=== PATIENT | female | born 1950 | race Caucasian/White ===

== ENCOUNTER 2021-10-14 05:20 | Day surgery (SDC) | payer MEDICARE ==
[2021-10-12 08:39] LABS: BASOPHILS % (AUTO) 0.7 % (0.0-2.0); EOSINOPHILS # (AUTO) 0.1 K/uL (0.0-0.4); EOSINOPHILS % (AUTO) 2.1 % (0.0-4.0); HEMATOCRIT 37.6 % (36-48); HEMOGLOBIN 12.5 g/dL (12.0-16.0); LYMPHOCYTES # (AUTO) 0.6 K/uL (1.0-5.5); LYMPHOCYTES % (AUTO) 18.9 % (20.5-51.5); MEAN CORPUSCULAR HEMOGLOBIN 29 pg (27-31); MEAN CORPUSCULAR HGB CONC 33 % (32-36); MEAN CORPUSCULAR VOLUME 86 fL (79.0-98.0); MONOCYTES # (AUTO) 0.3 K/uL (0.0-1.0); MONOCYTES % (AUTO) 9.1 % (1.7-9.3); NEUTROPHILS # (AUTO) 2.3 K/uL (1.8-7.7); NEUTROPHILS % (AUTO) 69.2 % (40.0-70.0); PLATELET COUNT (AUTO) 237 K/uL (130-430); RED BLOOD CELL COUNT(AUTO) 4.39 MIL/uL (4.2-6.2); RED CELL DISTRIBUTION WIDTH 14.2 % (9.0-15.0); WHITE BLOOD COUNT (AUTO) 3.3 K/uL (4.8-10.8)
[2021-10-12 08:40] LABS: HCG,QUAL RESULT NEGATIVE (NEGATIVE)
[2021-10-12 08:45] LABS: BILIRUBIN,URINE NEGATIVE (NEGATIVE); BLOOD, URINE 1+ (NEGATIVE); COLOR,URINE YELLOW (YELLOW); GLUCOSE,URINE NEGATIVE (NEGATIVE); KETONES,URINE NEGATIVE (NEGATIVE); LEUKOCYTE ESTERASE ,URINE 1+ (NEGATIVE); NITRITE, URINE POSITIVE (NEGATIVE); PH,URINE 6.5 (5.0-8.0); PROTEIN URINE NEGATIVE (NEGATIVE)
[2021-10-12 09:01] LABS: CLARITY/URINE HAZY (CLEAR)
[2021-10-12 09:05] LABS: BACTERIA,URINE MANY /HPF (None Seen)
[~2021-10-14] VITALS: Ht 165.1 cm; Wt 57.2 kg
[2021-10-14] MEDS ORDERED: CEFAZOLIN SOD 2 GM in D5W 50 ML IV ONE (07:30)
[2021-10-14] MEDS ORDERED: ONDANSETRON HCL 4 MG/2 ML VIAL ONE (07:46)
[2021-10-14] MEDS ORDERED: LR 1,000 ML IV.SOLN IV ONE (07:46)
[2021-10-14] MEDS ORDERED: PROPOFOL 200MG/ 20ML VIAL (DIPRIVAN) IV ONE (07:46)
[2021-10-14] MEDS ORDERED: KETOROLAC TROMETHAMINE 30 MG VIAL ONE (07:46)
[2021-10-14] MEDS ORDERED: BUPIVACAINE /EPINEPHRINE/PF 0.25% 30 ML VIAL INJ ONE (07:46)
[2021-10-14] MEDS ORDERED: DESFLURANE 15 MIN GAS INH ONE (07:46)
[2021-10-14] MEDS ORDERED: METOCLOPRAMIDE HCL 10 MG/2 ML VIAL ONE (07:46)
[2021-10-14] MEDS ORDERED: NS IRRIG SOLN 1000 ML IR ONE (07:46)
[2021-10-14] MEDS ORDERED: CLINDAMYCIN 2% VAGINAL CREAM VG ONE (07:46)
[2021-10-14] MEDS ORDERED: fentaNYL CITRATE/PF 100 MCG/2 ML AMP ONE (07:46)
[2021-10-14] MEDS ORDERED: DEXAMETHASONE SOD PHOSPHATE 4 MG/ML VIAL ONE (07:46)
[2021-10-14] MEDS ORDERED: FUROSEMIDE 20 MG/2 ML VIAL ONE (07:46)
[2021-10-14] MEDS ORDERED: ONDANSETRON HCL 4 MG/2 ML VIAL IVP PRN ×2 (09:15→09:45)
[2021-10-14] MEDS ORDERED: HYDROmorphone 1 MG/ML INJ. CARTRIDGE IVP PRN (09:15)
[2021-10-14] MEDS ORDERED: ACETAMINOPHEN I.V. 1000 MG 100 ML IV ONE (09:18)
[2021-10-14] MEDS ORDERED: LABETALOL 100 MG/ 20ML VIAL ONE (09:24)
[2021-10-14] MEDS ORDERED: HYDROcodone/ACETAMIN 5-325 MG TAB (NORCO/ VICODIN) PO PRN (09:45)
[2021-10-14] MEDS ORDERED: KETOROLAC TROMETHAMINE 30 MG VIAL IVP ONE (12:00)
[2021-10-14 12:13] VITALS: BP_SYST 132
[2021-10-14] MEDS ORDERED: CEFAZOLIN 1 GM IVPB PREMIX 50 ML IV ONE (13:00)
== END 2021-10-14 13:40 | disposition home or self-care (01) ==
LOC: SMU 05:20 → SDS 05:20
PROVIDERS: ATTEND Specialist
DX: N81.11 Cystocele, midline (principal); N39.3 Stress incontinence (female) (male); G20 Parkinson's disease; Z79.899 Other long term (current) drug therapy; Z20.822 Contact with and (suspected) exposure to COVID-19
CPT/HCPCS: 36415 ×2; 57240; 57288; 81000; 84703; 85025; 87086; 87426; 88305; C1771; J0131; J0690 ×2; J1100; J1885; J1940; J2405; J2704; J2765; J3010; J3490 ×2; J7060; J7120